=== PATIENT | male | born 1945 | race Caucasian/White ===

== ENCOUNTER 2018-10-25 05:30 | Day surgery (SDC) | payer MEDICARE, OTHER ==
[~2018-10-25] VITALS: Ht 180.3 cm; Wt 82.8 kg
[~2018-10-25 05:30] MED LIST: IMITREX25 MG PO
[2018-10-25 06:21] VITALS: BP 125/84; PULSE 63; TEMP 97.5
[2018-10-25] MEDS ORDERED: INDERAL 10MG10 MG PO ×2 (06:38→06:43)
[2018-10-25] MEDS ORDERED: HYGROTON 2525 MG/TAB PO (06:40)
[2018-10-25] MEDS ORDERED: ASPIRIN 81M81 MG/TA2 PO (06:42)
[2018-10-25] MEDS ORDERED: KRILL OIL 1,001 EAC1 PO (06:43)
[2018-10-25] MEDS ORDERED: OMEGA-3 FISH1000 MG PO (06:44)
[2018-10-25] MEDS ORDERED: LUMIGAN 5 ML5 M1 OP (06:47)
[2018-10-25] MEDS ORDERED: LIPITOR 10MG10 MG PO (06:48)
[2018-10-25 10:30] VITALS: BP 130/78; PULSE 60; TEMP 97.1
--- NOTE | 2018-10-25 10:30 | NUR ---
Patient returned from pacu via cart to bay 8. Patient drowsy, but responds to name. Vital signs wnl. 3 incisions on abdomen, covered, clean and intact. Per request patients called to return to hospital to bring home. Will continue to monitor.
[2018-10-25 10:45] VITALS: BP 125/73; PULSE 63; TEMP 96.7
--- NOTE | 2018-10-25 10:56 | NUR ---
Patient resting comfortably eyes closed in bed. Vital signs stable. Tolerating water without any issues. States still feels very tired. Call boles within reach, will continue to monitor.
[2018-10-25 11:00] VITALS: BP 120/70; PULSE 61; TEMP 96.7
--- NOTE | 2018-10-25 11:00 | NUR ---
Patient resting in bed. No complaints of pain. Tolerating water without issues. Denies anything to eat at this time. Vital signs WNL.
[2018-10-25 11:15] VITALS: BP 121/69; PULSE 62; TEMP 96.9
--- NOTE | 2018-10-25 11:15 | NUR ---
Patients is at bedside. Vital signs obtained WNL. Will continue to monitor.
[2018-10-25 11:45] VITALS: BP 121/72; PULSE 65; TEMP 97
[2018-10-25] MEDS ORDERED: NORCO 325 MG-51 TAB PO (12:11)
--- NOTE | 2018-10-25 12:45 | NUR ---
Patient states he would like pain medication at this time. Tolerating applesauce and jello without issues. Will continue to monitor.
--- NOTE | 2018-10-25 13:10 | NUR ---
Discharge instructions reviewed with patient and . All questions answered. Given new medication and script and appointment card.
--- NOTE | 2018-10-25 13:35 | NUR ---
Patient brought down to lobby via wheel chair. To be driven home by .
--- NOTE | 2018-10-25 13:46 | NUR ---
Patient ambulated to bathroom w/o issues. States had spontaneous void. Requesting applesauce and jello. Vital signs obtained. Will continue to monitor.
== END 2018-10-25 13:35 | disposition home or self-care (01) ==
LOC: SDCO 05:30
DX: K40.90 Unilateral inguinal hernia, without obstruction or gangrene, not specified as recurrent (principal); Z79.899 Other long term (current) drug therapy; Z79.82 Long term (current) use of aspirin; I10 Essential (primary) hypertension; I48.91 Unspecified atrial fibrillation; N40.0 Benign prostatic hyperplasia without lower urinary tract symptoms; G43.909 Migraine, unspecified, not intractable, without status migrainosus; Z85.9 Personal history of malignant neoplasm, unspecified; Z80.42 Family history of malignant neoplasm of prostate
CPT/HCPCS: C1781; J0690; J1100; J2405; J2704; J3010; J7120

== ENCOUNTER 2020-02-22 08:25 | Inpatient (IN) | payer MEDICARE, OTHER ==
[~2020-02-22] VITALS: Wt 84.1 kg
[~2020-02-22 08:25] MED LIST changes: +ASPIRIN 81M81 MG/TA2 PO; +HYGROTON 2525 MG/TAB PO; +INDERAL 10MG10 MG PO; +KRILL OIL 1,001 EAC1 PO; +LIPITOR 10MG10 MG PO; +LUMIGAN 5 ML5 M1 OP; +NORCO 325 MG-51 TAB PO; +OMEGA-3 FISH1000 MG PO
[2020-02-22 08:48] LABS: BASO # 0.1 (0.0-0.2); BASO % 0.9 % (0.0-2.0); EOS # 0.2 (0.0-0.7); EOS % 2.2 % (0-4.0); GRAN # 6.1 (1.4-6.5); GRAN % 75.6 % (42.2-75.2); HEMATOCRIT 43.2 % (42.0-52.0); HEMOGLOBIN 14.4 g/dl (13.5-18.0); LYMPH # 1.1 (1.2-3.4); LYMPH % 14.1 % (20.0-51.0); MEAN CELL VOLUME 88 fl (80.0-100.0); MEAN CORPUSCULAR HEMOGLOBIN 29 pg (27.0-31.0); MEAN CORPUSCULAR HGB CONC 33 g/dl (33.0-37.0); MEAN PLATELET VOLUME 9.9 fl (7.4-10.4); MONO # 0.6 (0.1-0.6); PLATELET COUNT 204 K/mm3 (130-400); REDCELL DISTRIBUTION WIDTH-CV 14.8 % (11.5-14.5)
[2020-02-22 09:04] LABS: ALANINE AMINOTRANSFERASE 19 U/L (4-49); ALBUMIN 4.1 gm/dL (3.5-5.0); ALKALINE PHOSPHATASE 44 U/L (50-136); ANION GAP 7 mmol/L (7-16); AST,SGOT 27 U/L (15-37); BILIRUBIN,TOTAL 0.7 mg/dL (0.0-1.0); BLOOD UREA NITROGEN 22 mg/dL (9-20); CALCIUM 9.8 mg/dL (8.4-10.2); CARBON DIOXIDE 30 mmol/L (22-30); CHLORIDE 103 mmol/L (98-107); CREATININE, serum 1.13 (0.66-1.25); GLUCOSE 123 mg/dL (74-106); LIPASE 189 U/L (23-300); POTASSIUM 3.4 mmol/L (3.4-5.0); SODIUM 140 mmol/L (137-145); TOTAL PROTEIN 7.4 gm/dL (6.4-8.2)
[2020-02-22 09:16] LABS: TROPONIN-I < 0.012 ng/mL (0.000-0.035)
--- NOTE | 2020-02-22 11:58 | NUR ---
PATIENT ADMITED INTO ROOM 341 FROM ER. HOSPITALIST NOTIFIED OF ARRIVAL. AWAITING ORDERS.
--- NOTE | 2020-02-22 14:45 | NUR ---
PATIENT AMBULATING IN HALLS INDEPENDENTLY WITH STEADY GAIT. NO C/O PAIN.
[2020-02-22] MEDS ORDERED: TAMBOCOR50 MG PO (16:01)
[2020-02-22] MEDS ORDERED: K-TAB20 PO (16:03)
[2020-02-22 16:55] VITALS: BP 108/58; PULSE 55; TEMP 98.5
[2020-02-22 18:38] VITALS: BP 135/70; PULSE 52; TEMP 97.8
--- NOTE | 2020-02-22 19:30 | NUR ---
Received report from Erlinda. Seen patient awake, lying on bed. He is alert and oriented. Denies any pain right now. With IV on right AC infusing LR at 100ml/hr. Instructed patient he is on NPO by midnight.
[2020-02-22 20:08] VITALS: BP 111/61; PULSE 59; TEMP 98.2
[2020-02-22 23:41] VITALS: BP 120/74; PULSE 56; TEMP 98.7
[2020-02-23] VITALS (12 sets, daily range): BP systolic 124–153; BP diastolic 66–83; PULSE 55–76; TEMP 97.7–99.1
--- NOTE | 2020-02-23 01:00 | NUR ---
Informed patient about consent for surgery and that it was noted here that it will be at 0800H. This nurse verified if the procedure was explained to him already and he said not that much. He wants to know the side effects, what to expect and what to look out for when he goes home before signing the consent.
--- NOTE | 2020-02-23 02:16 | NUR ---
Patient was transferred to Room 349 due to toilet flush not working.
[2020-02-23 05:29] LABS: COLLECTION METHOD CLEAN CATCH
[2020-02-23 05:35] LABS: PH 6 (5-8); SQUAMOUS EPITHELIAL None Seen /hpf; URINE APPEARANCE Clear; URINE BACTERIA None Seen /hpf; URINE BILIRUBIN Negative (NEGATIVE); URINE BLOOD Negative (NEGATIVE); URINE COLOR Yellow; URINE GLUCOSE Negative (NEGATIVE); URINE KETONE Negative (NEGATIVE); URINE LEUKOCYTE ESTERASE Negative (NEGATIVE); URINE NITRATE Negative (NEGATIVE); URINE PROTEIN(semi-quant) Negative (NEGATIVE); URINE RBC 0-2 /hpf; URINE UROBILINOGEN Negative (NEGATIVE)
--- NOTE | 2020-02-23 06:30 | NUR ---
Updated Dr. Coe via phone call that patient didn't sign the consent yet since he still have some questions. He said he will talk to the patient. This nurse asked Dr. Coe if I can give the Indocyanine Green that is scheduled now and he said yes.
[2020-02-23 07:15] LABS: BASO # 0.1 (0.0-0.2); BASO % 0.8 % (0.0-2.0); EOS # 0.2 (0.0-0.7); EOS % 2.5 % (0-4.0); GRAN # 3.9 (1.4-6.5); GRAN % 63.5 % (42.2-75.2); HEMATOCRIT 39.7 % (42.0-52.0); LYMPH # 1.5 (1.2-3.4); LYMPH % 24.5 % (20.0-51.0); MEAN CELL VOLUME 88 fl (80.0-100.0); MEAN CORPUSCULAR HEMOGLOBIN 29 pg (27.0-31.0); MEAN CORPUSCULAR HGB CONC 33 g/dl (33.0-37.0); MEAN PLATELET VOLUME 10.4 fl (7.4-10.4); MONO # 0.5 (0.1-0.6); MONO % 8.4 % (1.7-9.3); PLATELET COUNT 175 K/mm3 (130-400); RED BLOOD COUNT 4.51 M/mm3 (4.20-5.60); REDCELL DISTRIBUTION WIDTH-CV 14.9 % (11.5-14.5)
[2020-02-23 07:52] LABS: CALCIUM 8.8 mg/dL (8.4-10.2); CREATININE, serum 1.11 (0.66-1.25)
[2020-02-23 07:54] LABS: POTASSIUM 2.9 mmol/L (3.4-5.0)
--- NOTE | 2020-02-23 07:55 | NUR ---
Lying in bed with eyes open. Denies pain or needs at this time. Would like to talk with Dr. Cameron more about consent and procedure prior to signing the consent, Dr. Cameron is aware of this.
--- NOTE | 2020-02-23 08:09 | NUR ---
Dr. Love informed of potassium level. Potassium protocol ordered.
--- NOTE | 2020-02-23 08:41 | NUR ---
Anesthesia updated on patient potassium level and okay with oral potassium replacement.
--- NOTE | 2020-02-23 09:22 | NUR ---
Patient to surgery at this time via bed.
--- NOTE | 2020-02-23 12:05 | NUR ---
Patient back to room from surgery via bed. Denies pain. Says that he feels tired. Provided ice tea and water. Five abd incisions with swiftset in place, all edges well approximated without redness/drainage/edema. Patient denies further needs at this time.
--- NOTE | 2020-02-23 12:40 | NUR ---
Assisted patient into bathroom. Gait steady. Voids without difficulty. Returns to bed. Assisted into comfortable position. Denies further needs.
--- NOTE | 2020-02-23 15:50 | NUR ---
Patient was up ambulating in the halls. Continues to deny pain. Lap sites x5 with all edges well approximated, no redness/swelling/drainage noted.
--- NOTE | 2020-02-23 16:54 | NUR ---
Lying in bed with eyes open. Denies pain. Denies further needs at this time.
--- NOTE | 2020-02-23 18:12 | NUR ---
Sitting up in bed reading a book. Denies pain or needs at this time.
--- NOTE | 2020-02-23 19:30 | NUR ---
Received report from Shirlene. Patient is awake, sitting in bed. Denies any pain. 5 lap sites noted on his abdomen. Site is clean, dry and intact. No dressing or gauze. With INT on right AC. Patient has been walking around in the hallway as well. He is alert, oriented and independent.
--- NOTE | 2020-02-23 20:25 | NUR ---
Night meds were given which are Inderal, Xalatan opth solution and metronidazole. 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 He inquire as well why he is not taking Chlorthalidone anymore. This nurse said it was on hold and Inderal will work for his blood pressure but he said that he usually take both. This nurse called Rosy to inform her about the opthalmic solution and the Chlorthalidone and said that it was on hold because of his electrolyte imbalance which is his low potassium. She said she will put an order for PRN hydralazine just in case his blood pressure went up. Explained this to the patient and says it makes sense and agrees with the on hold medication.
[2020-02-24] VITALS: BP 141/79; PULSE 71; TEMP 983
[2020-02-24 03:56] VITALS: BP 155/91; PULSE 75; TEMP 98.2
[2020-02-24 04:46] VITALS: BP 143/78
--- NOTE | 2020-02-24 06:41 | NUR ---
Patient had an uneventful night. He has been walking around the hallway. Denies any pain. He has concerns about his incision site. This nurse let Enrique, charge nurse, to see the patient's incision site. It was clean, dry and intact. His abdomen seems more like gas trapped. He says he was able to pass out flatus.
[2020-02-24 07:26] LABS: HEMATOCRIT 42.8 % (42.0-52.0); HEMOGLOBIN 14.4 g/dl (13.5-18.0); MEAN CELL VOLUME 87 fl (80.0-100.0); MEAN CORPUSCULAR HEMOGLOBIN 29 pg (27.0-31.0); MEAN CORPUSCULAR HGB CONC 34 g/dl (33.0-37.0); MEAN PLATELET VOLUME 10.3 fl (7.4-10.4); PLATELET COUNT 199 K/mm3 (130-400); RED BLOOD COUNT 4.91 M/mm3 (4.20-5.60); REDCELL DISTRIBUTION WIDTH-CV 14.7 % (11.5-14.5)
[2020-02-24 07:34] LABS: ALBUMIN 3.9 gm/dL (3.5-5.0); BILIRUBIN,TOTAL 0.9 mg/dL (0.0-1.0); CALCIUM 9.1 mg/dL (8.4-10.2); CREATININE, serum 1.26 (0.66-1.25); TOTAL PROTEIN 7.2 gm/dL (6.4-8.2)
--- NOTE | 2020-02-24 07:50 | NUR ---
Lying in bed with eyes open. Denies pain at this time. Abd lap sites with edges well approximated, no redness/swelling/discharge. Bruising noted around sites. Patient passing gas. Voiding without difficulty. Hopes to go home today. Denies needs at this time.
[2020-02-24 07:51] VITALS: BP 145/81; PULSE 71; TEMP 98.9
--- NOTE | 2020-02-24 09:29 | NUR ---
Sitting up in bed reading a book. Denies pain or needs at this time.
[2020-02-24 09:52] LABS: BAND 1 % (0-10); LYMPHOCYTE 5 % (20.0-51.0); NEUTROPHILS 93 % (42.0-75.2); PLATELET ESTIMATE NORMAL (NORMAL)
--- NOTE | 2020-02-24 10:15 | NUR ---
Patient PCM, Dr. Cuba, in room to talk with the patient about his CT findings. They come to the plan of calling [facility] in the morning and transferring patient care to [facility] where the patient is an already established patient, Dr. Cuba will make this call from her clinic. Patient was able to review CT with Dr. Cuba and get questions answered. Patient denies further needs at this time.
[2020-02-24 11:44] VITALS: BP 149/80; PULSE 63; TEMP 98.1
[2020-02-24] MEDS ORDERED: AMOXICILLIN 8751 TAB PO (13:22)
--- NOTE | 2020-02-24 14:34 | NUR ---
Reviewed all discharge instructions with the patient. Questions answered. Patient concerned about paperwork from [facility] that he came in with to the ER and we do not have in his chart. ER was contacted and they do not have the records there. Medical records closed and this was informed to the patient. pest management supervisor updated that patient upset about this missing paperwork. Patient signs discharge paperwork. Discharge packet given to the patient. Patient informed that there are some additional labs that are pending. Patient asks if he will get a call regardless of the results. Explain that I can pass the information along to the hospitalist that he would like a call regardless of the results. Patient again asks about his [facility] papers and says that he will be calling the boiling house oiler tomorrow to have them also look into his paperwork. pest management supervisor updated on patient concern for paperwork. Notified BUBBA Buck, that patient would like call with liver function results regardless if they are normal or not.
--- NOTE | 2020-02-24 14:55 | NUR ---
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 Patient ambulates out with this nurse.
== END 2020-02-24 14:55 | disposition home or self-care (01) | DRG 419 ==
LOC: COL.ER 08:25 → SURG 09:35
PROVIDERS: Emergency Medicine; Nurse Practitioner Family; Physician Assistant; Surgery; ADMIT Student in an Organized Health Care Education/Training Program
PROC: 8E0W4CZ Robotic Assisted Procedure of Trunk Region, Percutaneous Endoscopic Approach (ICD-10-PCS; 2020-02-23)
PROC: 4A1BXSH Monitoring of Gastrointestinal Vascular Perfusion using Indocyanine Green Dye, External Approach (ICD-10-PCS; 2020-02-23)
PROC: 0FT44ZZ Resection of Gallbladder, Percutaneous Endoscopic Approach (ICD-10-PCS; principal; 2020-02-23 08:00)
DX: K81.0 Acute cholecystitis (principal); I48.91 Unspecified atrial fibrillation; I44.0 Atrioventricular block, first degree; N28.89 Other specified disorders of kidney and ureter; R91.1 Solitary pulmonary nodule; K76.9 Liver disease, unspecified; D72.829 Elevated white blood cell count, unspecified; E87.6 Hypokalemia; I10 Essential (primary) hypertension; G43.909 Migraine, unspecified, not intractable, without status migrainosus; Z79.891 Long term (current) use of opiate analgesic; Z79.82 Long term (current) use of aspirin; Z85.828 Personal history of other malignant neoplasm of skin; Z88.1 Allergy status to other antibiotic agents
CPT/HCPCS: 99222-AI; 99232-AI; 99239; C9113; J0696; J1100; J1885; J2270; J2405; J2543; J2550; J2704; J7030; J7120; Q9967

== ENCOUNTER → 2021-01-28 | Outpatient (CLI) | payer MEDICARE, OTHER ==
[~2021-01-28] MED LIST changes: +AMOXICILLIN 8751 TAB PO; +K-TAB20 PO; +TAMBOCOR50 MG PO
== END ==
LOC: COL.RAD 11:37
DX: D30.01 Benign neoplasm of right kidney (principal)

== ENCOUNTER 2021-10-30 20:13 | Emergency (ER) | payer MEDICARE, OTHER ==
[~2021-10-30] VITALS: Ht 180.3 cm; Wt 83.2 kg
[2021-10-30 20:20] VITALS: TEMP 98.9
[2021-10-30 20:44] LABS: COLLECTION METHOD CLEAN CATCH
[2021-10-30 20:52] LABS: PH 6 (5-8); SQUAMOUS EPITHELIAL None Seen /hpf (0-10); URINE APPEARANCE Hazy (CLEAR/HAZY); URINE BACTERIA Rare /hpf (NONE SEEN); URINE BILIRUBIN Negative (NEGATIVE); URINE BLOOD 3+ (NEGATIVE); URINE COLOR Red (YELLOW); URINE GLUCOSE Negative (NEGATIVE); URINE KETONE Negative (NEGATIVE); URINE LEUKOCYTE ESTERASE Negative (NEGATIVE); URINE NITRATE Positive (NEGATIVE); URINE PROTEIN(semi-quant) 2+ (NEGATIVE); URINE RBC >50 /hpf (0-2); URINE UROBILINOGEN Negative (NEGATIVE)
[2021-10-30 21:04] LABS: BASO % 0.6 % (0.0-2.0); EOS # 0.1 K/mm3 (0.0-0.7); EOS % 1.9 % (0.0-4.0); GRAN # 5.5 K/mm3 (1.4-6.5); GRAN % 75.3 % (42.2-75.2); HEMATOCRIT 41.7 % (42.0-52.0); HEMOGLOBIN 14.2 g/dl (13.5-18.0); LYMPH # 0.9 K/mm3 (1.2-3.4); LYMPH % 12.8 % (20.0-51.0); MEAN CELL VOLUME 87 fl (80.0-100.0); MEAN CORPUSCULAR HEMOGLOBIN 30 pg (27-31); MEAN CORPUSCULAR HGB CONC 34 g/dl (33.0-37.0); MEAN PLATELET VOLUME 9.8 fl (7.4-10.4); MONO # 0.7 K/mm3 (0.1-0.6); MONO % 9.3 % (1.7-9.3); PLATELET COUNT 202 K/mm3 (130-400); RED BLOOD COUNT 4.82 M/mm3 (4.20-5.60); REDCELL DISTRIBUTION WIDTH-CV 14.3 % (11.5-14.5)
[2021-10-30 21:19] LABS: ALBUMIN 3.8 gm/dL (3.4-4.8); BILIRUBIN,TOTAL 0.8 mg/dL (0.2-1.2); CALCIUM 9.3 mg/dL (8.4-10.2); CREATININE, serum 1.27 mg/dL (0.72-1.25); POTASSIUM 3.7 mmol/L (3.5-4.5); TOTAL PROTEIN 6.9 gm/dL (6.2-8.1)
[2021-10-30 22:54] VITALS: BP 145/93; PULSE 57
== END 2021-10-30 22:54 | disposition home or self-care (01) ==
LOC: COL.ER 20:13
PROVIDERS: Student in an Organized Health Care Education/Training Program
DX: R31.9 Hematuria, unspecified (principal); Z85.528 Personal history of other malignant neoplasm of kidney
CPT/HCPCS: Q9967

== ENCOUNTER 2021-11-01 10:31 | Observation (INO) | payer MEDICARE, OTHER ==
[~2021-11-01] VITALS: Ht 180.3 cm; Wt 82.5 kg
[2021-11-01 10:56] LABS: COLLECTION METHOD CLEAN CATCH
[2021-11-01 11:14] LABS: AMORPHOUS CRYSTAL Present (NOT PRESENT); PH 6 (5-8); SQUAMOUS EPITHELIAL None Seen /hpf (0-10); URINE APPEARANCE Hazy (CLEAR/HAZY); URINE BACTERIA Rare /hpf (NONE SEEN); URINE BILIRUBIN Negative (NEGATIVE); URINE BLOOD 2+ (NEGATIVE); URINE COLOR Red (YELLOW); URINE GLUCOSE Negative (NEGATIVE); URINE KETONE Trace (NEGATIVE); URINE LEUKOCYTE ESTERASE Negative (NEGATIVE); URINE NITRATE Negative (NEGATIVE); URINE PROTEIN(semi-quant) 2+ (NEGATIVE); URINE RBC >50 /hpf (0-2); URINE UROBILINOGEN Negative (NEGATIVE)
[2021-11-01 11:25] LABS: BASO # 0.1 K/mm3 (0.0-0.2); BASO % 0.7 % (0.0-2.0); EOS # 0.1 K/mm3 (0.0-0.7); EOS % 1.6 % (0.0-4.0); GRAN # 5.4 K/mm3 (1.4-6.5); GRAN % 72.3 % (42.2-75.2); HEMOGLOBIN 14.2 g/dl (13.5-18.0); LYMPH # 1.3 K/mm3 (1.2-3.4); LYMPH % 17.2 % (20.0-51.0); MEAN CELL VOLUME 88 fl (80.0-100.0); MEAN CORPUSCULAR HEMOGLOBIN 29 pg (27-31); MEAN CORPUSCULAR HGB CONC 33 g/dl (33.0-37.0); MONO # 0.6 K/mm3 (0.1-0.6); MONO % 8.1 % (1.7-9.3); PLATELET COUNT 196 K/mm3 (130-400); RED BLOOD COUNT 4.89 M/mm3 (4.20-5.60); REDCELL DISTRIBUTION WIDTH-CV 14.3 % (11.5-14.5)
[2021-11-01 11:48] LABS: ALBUMIN 3.8 gm/dL (3.4-4.8); BILIRUBIN,TOTAL 1.1 mg/dL (0.2-1.2); CALCIUM 9.3 mg/dL (8.4-10.2); CREATININE, serum 1.37 mg/dL (0.72-1.25); POTASSIUM 3.8 mmol/L (3.5-4.5); TOTAL PROTEIN 7.1 gm/dL (6.2-8.1)
[2021-11-01 16:00] VITALS: BP 154/85; PULSE 68; TEMP 97.9
[2021-11-01] MEDS ORDERED: ALDACTONE 25MG25 M1 PO (16:21)
[2021-11-01] MEDS ORDERED: HCTZ 25MG TAB25 MG PO (16:22)
[2021-11-01] MEDS ORDERED: PRESERVISION1 SGL PO ×3 (16:22→16:23)
[2021-11-01] MEDS ORDERED: ELIQUIS 5MG PO (16:24)
[2021-11-01 19:24] VITALS: BP 150/79; PULSE 79; TEMP 98.2
--- NOTE | 2021-11-01 21:00 | NUR ---
PT IN BED, HAS CBI RUNNING AT MODERATE RATE, URINE PINK AND WITHOUT CLOTS. PT ASKING ABOUT HOME MEDS, INCLUDING AM MEDS HE DIDN'T TAKE. INT TO RAC, FLUSHES WELL. INFORMED PT ALL MEDS WERE REORDERED MINUS ELIQUIS. INSTRUCTED HE WILL BE NPO AFTER MIDNIGHT, PT VERBALIZED UNDERSTANDING.
--- NOTE | 2021-11-01 22:20 | NUR ---
HS MEDS GIVEN, INCLUDING AM MEDS HE MISSED. DENIES NEEDS, SUSHANT KRAFT.
[2021-11-01 23:21] VITALS: BP 130/63; PULSE 79; TEMP 98.4
[2021-11-02] VITALS (13 sets, daily range): BP systolic 102–169; BP diastolic 65–89; PULSE 54–71; TEMP 97.4–98.6
--- NOTE | 2021-11-02 09:40 | NUR ---
Initial visit; Patient states that her is doing better and thanked Needle Grinder for offering God's blessings and keeping him in her prayers.
--- NOTE | 2021-11-02 11:11 | NUR ---
farmworker machine met with patient to discuss discharge plan. Patient reports that he lives at home with his Joanne ([phone]). Patient is fully independent with his activities of daily living and does not utilize any DME to assist with mobility. Patient reports to no oxygen needs at home. PCP is Dr. uCba and he utilizes [facility] pharmacy for medications with no cost difficulty. Patient reports that he does have a DPOA-HC established and Dr. Cuba's office has a copy. Gives permission to call and obtain. Patient is planning on returning home post dc with no concerns. Discharge plan: Home with .
--- NOTE | 2021-11-02 11:37 | NUR ---
LARRY wigg[facility] for [facility] to fax a copy of the patient's DPOA-HC to the hospital's surgical unit.
--- NOTE | 2021-11-02 14:50 | NUR ---
PATIENT GOING DOWN TO OR VIA BED. CONSENT ON CHART. PRE-OPS GIVEN. PATIENT OFF FLOOR.
--- NOTE | 2021-11-02 18:00 | NUR ---
PATIENT BACK IN ROOM POST OP. PATIENT IS VERY ANXIOUS AND PACU REPORTED HE WAS INSISTANT THAT HIS BLADDER WAS FULL. CANCHOLA TO DD WITH CBI INFUSING AT MOD RATE. URINE IS LIGHT PINK. NURSING EDUCATED PATIENT ABOUT POST OP DISCOMFORT/PRESSURE. PACU REPORTS GIVING B&O, LEVSIN & FENTANYL. PATIENT TRYING TO SIT UP IN BED, RESTLESS, AND DOESN'T SEEM TO BE TRACKING WHAT NURSING IS TELLING HIM. PATIENT NOW STATING HE NEEDS TO HAVE A BM. NURSING AGAIN EDUATED PATIENT ABOUT POST OP PRESSURE AND PREVIOUS NPO STATUS. PATIENT REQUESTING SUPP. RN CALLED , SEE ORDERS.
--- NOTE | 2021-11-02 19:00 | NUR ---
PATIENT HAS BEEN CALLING OUT FREQUENTLY CONCERNED ABOUT HIS "BLEEDING KIDNEY" FOUND AND WANTED NURSING TO EXPLAIN "HIS CONDITION". NURSING TOLD HIM WE WERE NOT IN SURGERY WITH AND HE WOULD BE BY IN THE MORING TO ANSWER ANY QUESTIONS HE MAY THINK OF. PATIENT CONTINUED TO CALL OUT ASKING FOR "AN UPDATE ON HIS CONDITION". NURSING GATHERED HE MEANS HIS VITALS. PATIENT IS NOT CLEAR AND SEEMS TO BE UNDER THE INFLUENCE OF ANESTHESIA.
--- NOTE | 2021-11-02 19:15 | NUR ---
GISEL BEDSIDE SHIFT REPORT, PATIENT ASKING WHY THE DOCTOR ISN'T REVIEWING HIS VITALS MACHINE. NURSING EDUCATED HIM THAT WAS OUR JOB. PATIENT CONCERNED HIS B/P IS IN THE 140-150'S SYSTOLIC POST OP AND THINKS IT WILL CAUSE HIM KIDNEY DAMAGE. NURSING REPORTS THIS WAS A POST OP/PAIN/ANXIOUS RESPONSE AND WILL BE MONITORED AND RECORDED. PATIENT CONSTANTLY TAKING OFF OXYGEN MONITOR AND TRYING TO SIT UP IN BED. PATIENT CONTINUES TO BE VERY ANXIOUS.
--- NOTE | 2021-11-02 20:00 | NUR ---
RECEIVED CHANGE OF SHIFT REPORT FROM DAY SHIFT RN.
[2021-11-03 04:48] VITALS: BP 134/77; PULSE 63; TEMP 98.2
--- NOTE | 2021-11-03 05:09 | NUR ---
REPORTS PAIN TO R ABD HAD SUBSIDED AFTER PAIN PILL GIVEN EARLIER BUT IS STARTING TO INCREASE ALONG WITH URGE TO VOID. SEE MAR FOR MEDS GIVEN.
--- NOTE | 2021-11-03 07:23 | NUR ---
CHANGE OF SHIFT REPORT GIVEN TO DAY SHIFT RNYOLIS.
[2021-11-03 07:53] VITALS: BP 126/66; PULSE 65; TEMP 97.9
--- NOTE | 2021-11-03 08:16 | NUR ---
Pt assessment complete. Pt is laying in bed upon entry, he is A/O x4. His breathing is even and unlabored on RA. Pt denies SOB. No pain at this time. Reports Levsin was helpful in relieving abdominal pain. Pt denies any N/V. Catheter primed and pulled, 6 cup routine started. POC discussed with patient who verbalizes understanding. No needs at this time. Call light within reach.
[2021-11-03 12:07] VITALS: BP 93/53; PULSE 65; TEMP 98.3
--- NOTE | 2021-11-03 15:09 | NUR ---
Pt reporting having the urge to urinate with little production and some burning. Pt bladder scanned revealing 56mls. No clots or little blood visualized to urine cups. No further needs at this time.
[2021-11-03 16:30] VITALS: BP 117/60; PULSE 63; TEMP 98.1
--- NOTE | 2021-11-03 17:34 | NUR ---
Discharge paperwork and instructions reviewed with patient. Mainor called to pharmacy per Dr. Soni. IV dc'd catheter tip intact. Pt wheeled out of facility by staff member at this time.
== END 2021-11-03 17:36 | disposition home or self-care (01) ==
LOC: COL.ER 10:31 → SURG 14:49
PROVIDERS: Physician Assistant; ADMIT Urology
DX: R31.0 Gross hematuria (principal); D30.10 Benign neoplasm of unspecified renal pelvis; N28.89 Other specified disorders of kidney and ureter; I48.91 Unspecified atrial fibrillation; I10 Essential (primary) hypertension; R00.1 Bradycardia, unspecified; G43.909 Migraine, unspecified, not intractable, without status migrainosus; Z79.01 Long term (current) use of anticoagulants; Z79.899 Other long term (current) drug therapy; Z85.828 Personal history of other malignant neoplasm of skin
CPT/HCPCS: C1769; G0378; J0690; J2270; J2405; J2704; J3010; J7030; J7120; Q9967

== ENCOUNTER 2021-11-07 16:51 | Emergency (ER) | payer MEDICARE, OTHER ==
[~2021-11-07] VITALS: Ht 180.3 cm; Wt 81.8 kg
[~2021-11-07 16:51] MED LIST changes: +ALDACTONE 25MG25 M1 PO; +ELIQUIS 5MG PO; +HCTZ 25MG TAB25 MG PO; +PRESERVISION1 SGL PO
[2021-11-07 17:02] VITALS: TEMP 97.7
[2021-11-07 17:36] LABS: BASO # 0.1 K/mm3 (0.0-0.2); BASO % 0.8 % (0.0-2.0); EOS # 0.1 K/mm3 (0.0-0.7); EOS % 1.3 % (0.0-4.0); GRAN # 4.6 K/mm3 (1.4-6.5); GRAN % 77.9 % (42.2-75.2); HEMOGLOBIN 12.7 g/dl (13.5-18.0); LYMPH # 0.6 K/mm3 (1.2-3.4); LYMPH % 9.9 % (20.0-51.0); MEAN CELL VOLUME 85 fl (80.0-100.0); MEAN CORPUSCULAR HEMOGLOBIN 29 pg (27-31); MEAN CORPUSCULAR HGB CONC 35 g/dl (33.0-37.0); MEAN PLATELET VOLUME 10.2 fl (7.4-10.4); MONO # 0.6 K/mm3 (0.1-0.6); MONO % 9.6 % (1.7-9.3); PLATELET COUNT 245 K/mm3 (130-400); RED BLOOD COUNT 4.33 M/mm3 (4.20-5.60); REDCELL DISTRIBUTION WIDTH-CV 13.9 % (11.5-14.5)
[2021-11-07 17:42] LABS: HEMATOCRIT 36.8 % (42.0-52.0)
[2021-11-07 17:58] LABS: ALBUMIN 3.5 gm/dL (3.4-4.8); C-REACTIVE PROTEIN 5.85 mg/dL (0.00-0.50); CREATININE, serum 1.57 mg/dL (0.72-1.25); POTASSIUM 3.5 mmol/L (3.5-4.5); TOTAL PROTEIN 7.1 gm/dL (6.2-8.1)
[2021-11-07 18:33] LABS: COLLECTION METHOD CLEAN CATCH
[2021-11-07 18:42] LABS: MUCOUS Present (NOT PRESENT); PH 6 (5-8); SQUAMOUS EPITHELIAL None Seen /hpf (0-10); URINE APPEARANCE Hazy (CLEAR/HAZY); URINE BACTERIA None Seen /hpf (NONE SEEN); URINE BILIRUBIN Negative (NEGATIVE); URINE BLOOD 3+ (NEGATIVE); URINE COLOR Amber (YELLOW); URINE GLUCOSE Negative (NEGATIVE); URINE KETONE Negative (NEGATIVE); URINE LEUKOCYTE ESTERASE Negative (NEGATIVE); URINE NITRATE Negative (NEGATIVE); URINE PROTEIN(semi-quant) 2+ (NEGATIVE); URINE RBC >50 /hpf (0-2); URINE UROBILINOGEN Negative (NEGATIVE)
[2021-11-07] MEDS ORDERED: OMNICEF 300MG300 MG PO (19:33)
[2021-11-07 19:49] VITALS: BP 119/74; PULSE 60
== END 2021-11-07 19:56 | disposition home or self-care (01) ==
LOC: COL.ER 16:51
PROVIDERS: Emergency Medicine; Nurse Practitioner
DX: N39.0 Urinary tract infection, site not specified (principal); I10 Essential (primary) hypertension; I48.91 Unspecified atrial fibrillation; G43.909 Migraine, unspecified, not intractable, without status migrainosus; N26.1 Atrophy of kidney (terminal); Z96.0 Presence of urogenital implants; Z88.1 Allergy status to other antibiotic agents; Z79.01 Long term (current) use of anticoagulants; Z79.899 Other long term (current) drug therapy
CPT/HCPCS: J0696; J7030